=== PATIENT | female | born 1975 | race African-American/Black ===

== ENCOUNTER 2024-07-10 13:48 | Emergency (ER) | payer OTHER ==
[2024-07-10 14:25] VITALS: BP 138/84; PULSE 70; RESP 17; TEMP 98.4; BMI 36.8
[2024-07-10] MEDS ORDERED: LIDOCAINE 4% PATCH TP ONE (15:51)
[2024-07-10] MEDS ORDERED: IBUPROFEN 600 MG TABLET (FP) PO ONE (15:52)
[2024-07-10] MEDS ORDERED: ACETAMINOPHEN 500 MG TABLET (FP) ONE (15:52)
[2024-07-10] MEDS: IBUPROFEN 600 MG TABLET (FP) PO ONE (15:56)
[2024-07-10] MEDS: LIDOCAINE 4% PATCH TP ONE (15:56)
[2024-07-10] MEDS: ACETAMINOPHEN 500 MG TABLET (FP) PO ONE (15:57)
[2024-07-10] MEDS ORDERED: LIDOCAINE PATCH REMOVAL MC SCH (22:00)
== END 2024-07-10 17:15 | disposition home or self-care (01) ==
LOC: JERFT 13:48
DX: M54.50 Low back pain, unspecified (principal); M25.551 Pain in right hip; M79.671 Pain in right foot; W10.9XXA Fall (on) (from) unspecified stairs and steps, initial encounter
CPT/HCPCS: 72100-TC-FY; 73502-TC-RT-FY; 73630-TC-RT-FY; 99283-25